=== PATIENT | male | born 1975 | race Caucasian/White ===

== ENCOUNTER 2019-05-01 09:34 | Outpatient (CLI) | payer OTHER, SELFPAY ==
--- NOTE | ~2019-05-01 | XR_ITS ---
XR chest 2V 05/01/2019 09:53 Indication: Dizziness and giddiness. Shortness of breath. Procedure: 2 view chest Comparison: No prior studies for comparison. Findings: Heart size normal. Nodular density right infrahilar region. Left lung clear. No acute osseo us abnormality. No focal pneumonia, edema, pleural effusion or pneumothorax. Impression: 1: Nodular density right infrahilar region. Recommend follow-up CT chest with contrast. Reviewed, dictated and finalized at location A. Impression: 1: Nodular density right infrahilar region. Recommend follow-up CT chest with c ontrast.
[2019-05-01 10:16] LABS: Hematocrit 43.8 % (42.0-52.0); Hemoglobin 14.6 g/dL (14.0-18.0); Mean Corpuscular HGB Conc 33.3 g/dl (32-36); Mean Corpuscular Hemoglobin 29.4 pg (26-34); Mean Corpuscular Volume 88.1 fl (80-100); Mean Platelet Volume 10.4 fl (7.4-10.4); Platelet Count Result 178 k/mm3 (150-375); Red Blood Count 4.97 M/mm3 (4.6-6.20); Red Cell Distribution Width 11.6 % (11.5-14.5); White Blood Count 3.9 K/mm3 (4.5-10.0)
[2019-05-01 10:36] LABS: Alanine Aminotransferase 48 U/L (4-50); Albumin Level 4.7 g/dL (3.5-5.1); Alkaline Phosphatase 69 U/L (38-126); Aspartate Amino Transferase 50 U/L (17-59); Bilirubin,Total 0.7 mg/dL (0.2-1.3); Blood Urea Nitrogen 17 mg/dL (9-20); Calcium 9.5 mg/dL (8.4-10.2); Carbon Dioxide 30 mmol/L (22-30); Chloride 102 mmol/L (98-107); Cholesterol 186 mg/dL (0-200); Estimated Glomerular Filt Rate > 60; Glucose 92 mg/dL (75-110); HDL Direct 42 mg/dL; Potassium 4.5 mmol/L (3.4-5.0); Sodium 140 mmol/L (137-145); Triglycerides 78 mg/dL (<150)
[2019-05-01 10:47] LABS: LDL Cholesterol Direct 107 mg/dL
--- NOTE | 2019-05-03 11:58 | WPDHOLTEREM ---
Holter/Event Monitor Holter/Event Monitor Date of procedure: 05/03/19 Procedure Type: 24 hour holter monitor Indications: Dizziness Conclusion: 1. 24 hour holter monitor on 05/03/19. 2. Underlying rhythm is sinus rhythm. HR range 47-121 bpm; average HR 74 bpm. 3. There are 51 premature supraventricular complexes and 5 supraventricular couplets. No supraventricular tachycardia. 4. There are 669 premature ventricular complexes and 54 ventricular couplets. No ventricular tachycardia. 5. No sinoatrial or atrioventricular blocks. No significant pauses greater than 2 seconds. 6. Patient reports symptoms of lightheadedness and side pain which demonstrate sinus rhythm, HR range 69-75 bpm.
== END 2019-05-01 09:35 | disposition home or self-care (01) ==
PROVIDERS: PCP Family Medicine; Visit Provider Family Medicine
DX: R06.02 Shortness of breath (principal); R42 Dizziness and giddiness; R94.31 Abnormal electrocardiogram [ECG] [EKG]; F41.9 Anxiety disorder, unspecified; I10 Essential (primary) hypertension; Z79.899 Other long term (current) drug therapy; R20.0 Anesthesia of skin; R20.2 Paresthesia of skin; R41.840 Attention and concentration deficit; R91.8 Other nonspecific abnormal finding of lung field
CPT/HCPCS: 36415; 71046; 80053; 80061; 82607; 83735; 84443; 85027; 93225; 93226

== ENCOUNTER 2019-05-08 14:24 | Outpatient (CLI) | payer OTHER, SELFPAY ==
--- NOTE | ~2019-05-08 | CT_ITS ---
EXAMINATION: CT chest w con EXAM DATE: 05/08/2019 15:15 INDICATION: Lung nodule. Shortness of breath. TECHNIQUE: Spiral CT of the chest following intravenous injection of 75 mL Omnipaque 350. Axial, cor onal and sagittal images were reviewed. Coronal maximum intensity pixel images of chest reviewed. Mumtaz robledo dose-length product (DLP) for this examination was 330.94 mGy-cm. The exposure was tailored accor ding to patient size (auto mA exposure control), and iterative reconstruction (ASIR) was used as rosalind tional dose reduction technique. There is no prior study for comparison. Correlation was made with chest x-ray 05/01/2019. FINDINGS: Prior chest x-ray reported a right infrahilar nodular density. The lungs are clear, uncert ain whether or not the nodular density was summation shadows or airspace disease which has subsequent ly resolved. There are no central pulmonary emboli. There are no pleural or pericardial effusions. Tracheobronchial tree is patent. There is no mediastinal, hilar or axillary lymphadenopathy. The re is no pneumothorax. Heart normal in size. No evidence of coronary arterial calcification. Upp er abdomen is unremarkable. Right glenoid bone island. IMPRESSION: 1. Unremarkable chest CT examination. Reviewed, dictated and finalized at location A.
== END 2019-05-08 14:25 | disposition home or self-care (01) ==
PROVIDERS: Visit Provider Family Medicine
DX: R91.1 Solitary pulmonary nodule (principal); R06.02 Shortness of breath
CPT/HCPCS: 71260; Q9967

== ENCOUNTER 2020-06-20 07:59 | Outpatient (CLI) | payer OTHER, SELFPAY ==
--- NOTE | 2020-07-08 16:11 | WPDHOMESLEEP ---
Sleep Study - Home Unattended Date of Study: 06/20/20 Ordering Provider: Cristina Hill PA-C Interpreting Provider: Fiorella Cobos MD Home Sleep Study Type: Watch PAT Height: 1.88 m Weight: 104.326 kg Body Mass Index: 29.5 Neck Circumference (inches): 16 [place]: 13 Reason for Sleep Study Loud snoring 11/16/2016 Basic sleep study; BMI 28.2; AHI 2.6, mild snoring, O2 desaturation to 81%. Sleep History Heraclio Valenzuela is a 45 year old male who wakes up throughout the night. He rarely sleeps more than 2 hours at a time. He often feels tired during the day. There is a family history of sleep issues with his brother and uncle both having sleep disorders. He frequently awakens from sleep feeling short of breath. He occasionally awakens at night with heartburn, belching or coughing. He frequently snores and it is loud enough that others complain about it. He frequently has trouble sleep with a cold. He rarely wakes up gasping for breath during the night. He frequently has breathing problems at night observed by others. He rarely sweats excessively night. He rarely notices his heart pounding or beating irregularly at night. He frequently falls asleep during the day, occasionally involuntarily, and occasionally while driving. He does not fall asleep during physical effort. He does not have loss of muscle tone with strong emotion. He occasionally has trouble during the day due to excessive sleepiness. He does not feel paralyzed on waking or falling asleep. Rarely he has vivid dreamlike scenes upon awakening or falling asleep. He is never afraid to go to sleep. He occasionally has nightmares. He occasionally remembers his dreams. He rarely has racing thoughts. He does not feel sad or depressed. He occasionally has anxiety. He rarely has muscular tension. He rarely notices parts of his body jerking. He occasionally kicks at night. He does not have crawling or aching feelings in his legs. He rarely has any kind of leg pain at night. He does not have morning jaw pain. He apparently grinds his teeth during sleep. He is not bothered by pain during the day and is not awakened by pain at night. He occasionally wakes up feeling stiff in the morning with sore or achy muscles. He rarely wakes up with pain in the neck and spine. He has nightmares and fatigue. Normal bedtime is 11:00 p.m. falling asleep within 5-20 minutes waking multiple times at night. Sometimes he wakes up to urinate. Otherwise, he rolls over and tries to go back to sleep. He is in bed for around 7 hours a night. He is waking by 6:00 a.m. on weekdays. On weekends he also goes to bed at 11:00 p.m. and wakes at 7:00 a.m.. He occasionally takes naps in the afternoon or evening. A short nap is not refreshing. He is drowsy in the morning. He feels better in the morning compared other times of the day. Habits: Never smoked tobacco. No caffeine, alcohol or recreational drugs. [facility] Past Medical History Medical History (Updated 07/08/20 @ 16:37 by Fiorella Cobos MD) Hypertension Surgical History Surgical History History of tonsillectomy (~1984) Social History Social History Second hand tobacco smoke exposure: No Alcohol intake: never Substance use: never Substance use type: does not use Gender identity (if verbalized by the patient): Male Medications Home Medications Medication Instructions Recorded Confirmed Type metoprolol succinate 25 mg 25 mg PO DAILY 10/12/19 05/21/20 History tablet,extended release 24 hr lisinopril 20 mg tablet See Rx Instructions .ROUTE 05/16/20 05/21/20 Rx .COMPLEX #90 tablet Sleep Procedure The sleep study was completed using [employer] a technically adequate device with seven channels: peripheral arterial tone, actigraphy, body position, snore, respiratory movement, pulse oximet
[2020-07-08 16:13] VITALS: BMI 29.5
== END 2020-06-20 08:00 | disposition home or self-care (01) ==
LOC: ANHCSM 07:59
PROVIDERS: PCP Family Medicine; Visit Provider Physician Assistant
DX: G47.33 Obstructive sleep apnea (adult) (pediatric) (principal)
CPT/HCPCS: 95800

== ENCOUNTER → 2020-09-02 19:30 | Outpatient (CLI) | payer OTHER, SELFPAY ==
--- NOTE | 2020-09-24 20:52 | P.SLEEP_ITS ---
Sleep Study Date of Study: 08/18/20 Ordering Provider: Cristina Hill PA-C Interpreting Physician: Fiorella Cobos MD Sleep Study Type: CPAP Titration Height: 1.88 m Weight: 99.79 kg Body Mass Index: 28.2 Neck Circumference (inches): 16 [place]: 13 [facility] Past Medical History Medical History (Updated 07/08/20 @ 16:37 by Fiorella Cobos MD) Hypertension Surgical History Surgical History History of tonsillectomy (~1984) Social History Social History Second hand tobacco smoke exposure: No Alcohol intake: never Alcohol use details: Patient is not drinking alcohol at this time. Substance use: never Substance use type: does not use Gender identity (if verbalized by the patient): Male Medications Home Medications Medication Instructions Recorded Confirmed Type metoprolol succinate 25 mg 25 mg PO DAILY 10/12/19 05/21/20 History tablet,extended release 24 hr lisinopril 20 mg tablet See Rx Instructions .ROUTE 05/16/20 05/21/20 Rx .COMPLEX #90 tablet Sleep Procedure This test was performed using the [employer] multiple channel system including EOG, EEG, submental EMG, EKG, nasal and oral airflow using thermistors and nasal pressure sensors, chest and abdominal belts for body position data, and pulse oximetry. Video monitoring was also performed. The study was scored using CMS guidelines. The patient was started on CPAP .... EEG Profile EEG was unremarkable, no evidence of seizures.
--- NOTE | 2020-09-24 20:53 | WPDSLEEPSTUD ---
Sleep Study Date of Study: 09/02/20 Ordering Provider: Cristina Hill PA-C Interpreting Physician: Fiorella Cobos MD Sleep Study Type: CPAP Titration Height: 1.88 m Weight: 99.79 kg Body Mass Index: 28.2 Neck Circumference (inches): 16 [place]: 13 Reason for Sleep Study * Home sleep test using WatchPat on June 20, 2020 shows moderate obstructive sleep apnea with an AHI 24.5, moderate snoring and desaturation to 80%. He presents for CPAP titration. * 11/16/2016 Basic sleep study; BMI 28.2; AHI 2.6, mild snoring, O2 desaturation to 81%. Sleep History Heraclio Valenzuela is a 45 year old male who wakes up throughout the night. He rarely sleeps more than 2 hours at a time. He often feels tired during the day. There is a family history of sleep issues with his brother and uncle both having sleep disorders. He frequently awakens from sleep feeling short of breath. He occasionally awakens at night with heartburn, belching or coughing. He frequently snores and it is loud enough that others complain about it. He frequently has trouble sleep with a cold. He rarely wakes up gasping for breath during the night. He frequently has breathing problems at night observed by others. He rarely sweats excessively night. He rarely notices his heart pounding or beating irregularly at night. He frequently falls asleep during the day, occasionally involuntarily, and occasionally while driving. He does not fall asleep during physical effort. He does not have loss of muscle tone with strong emotion. He occasionally has trouble during the day due to excessive sleepiness. He does not feel paralyzed on waking or falling asleep. Rarely he has vivid dreamlike scenes upon awakening or falling asleep. He is never afraid to go to sleep. He occasionally has nightmares. He occasionally remembers his dreams. He rarely has racing thoughts. He does not feel sad or depressed. He occasionally has anxiety. He rarely has muscular tension. He rarely notices parts of his body jerking. He occasionally kicks at night. He does not have crawling or aching feelings in his legs. He rarely has any kind of leg pain at night. He does not have morning jaw pain. He apparently grinds his teeth during sleep. He is not bothered by pain during the day and is not awakened by pain at night. He occasionally wakes up feeling stiff in the morning with sore or achy muscles. He rarely wakes up with pain in the neck and spine. He has nightmares and fatigue. Normal bedtime is 11:00 p.m. falling asleep within 5-20 minutes waking multiple times at night. Sometimes he wakes up to urinate. Otherwise, he rolls over and tries to go back to sleep. He is in bed for around 7 hours a night. He is waking by 6:00 a.m. on weekdays. On weekends he also goes to bed at 11:00 p.m. and wakes at 7:00 a.m.. He occasionally takes naps in the afternoon or evening. A short nap is not refreshing. He is drowsy in the morning. He feels better in the morning compared other times of the day. Habits: Never smoked tobacco. No caffeine, alcohol or recreational drugs. [facility] Past Medical History Medical History (Updated 09/24/20 @ 21:31 by Fiorella Cobos MD) Hypertension Obstructive sleep apnea Surgical History Surgical History History of tonsillectomy (~1984) Social History Social History Second hand tobacco smoke exposure: No Alcohol intake: never Alcohol use details: Patient is not drinking alcohol at this time. Substance use: never Substance use type: does not use Gender identity (if verbalized by the patient): Male Medications Home Medications Medication Instructions Recorded Confirmed Type metoprolol succinate 25 mg 25 mg PO DAILY 10/12/19 05/21/20 History tablet,extended release 24 hr lisinopril 20 mg tablet See Rx Instructions .ROUTE 05/16/20
[2020-09-24 21:24] VITALS: BMI 28.2
== END ==
PROVIDERS: PCP Family Medicine; Visit Provider Physician Assistant
DX: G47.33 Obstructive sleep apnea (adult) (pediatric) (principal)
CPT/HCPCS: 95811

== ENCOUNTER 2021-12-01 10:26 | Outpatient (CLI) | payer OTHER, SELFPAY ==
[2021-12-01 19:37] LABS: Hematocrit 41.8 % (42.0-52.0); Hemoglobin 14.1 g/dL (14.0-18.0); Mean Corpuscular HGB Conc 33.7 g/dl (32-36); Mean Corpuscular Hemoglobin 30.1 pg (26-34); Mean Corpuscular Volume 89.1 fl (80-100); Mean Platelet Volume 11.5 fl (7.4-10.4); Platelet Count Result 191 k/mm3 (150-375); Red Blood Count 4.69 M/mm3 (4.6-6.20); Red Cell Distribution Width 11.6 % (11.5-14.5); White Blood Count 4.3 K/mm3 (4.5-10.0)
[2021-12-01 20:28] LABS: Alanine Aminotransferase 42 U/L (6-50); Albumin Level 4.8 g/dL (3.5-5.1); Alkaline Phosphatase 66 U/L (38-126); Anion Gap 11 mmol/L (8-16); Aspartate Amino Transferase 49 U/L (17-59); Bilirubin,Total 1.2 mg/dL (0.2-1.3); Blood Urea Nitrogen 21 mg/dL (9-20); Calcium 9.2 mg/dL (8.4-10.2); Carbon Dioxide 25 mmol/L (22-30); Chloride 104 mmol/L (98-107); Estimated Glomerular Filt Rate > 60; Glucose 87 mg/dL (65-110); Potassium 4.3 mmol/L (3.4-5.0); Sodium 140 mmol/L (137-145)
[2021-12-01 20:59] LABS: Prostate Specific Antigen 1.3 ng/mL (< OR = 4.0)
== END 2021-12-01 10:27 | disposition home or self-care (01) ==
LOC: ANHGOSHLAB 10:29
PROVIDERS: PCP Family Medicine; Visit Provider Family Medicine
DX: E66.3 Overweight (principal); G47.33 Obstructive sleep apnea (adult) (pediatric); E78.5 Hyperlipidemia, unspecified; I10 Essential (primary) hypertension; Z12.5 Encounter for screening for malignant neoplasm of prostate
CPT/HCPCS: 36415; 80053; 84153; 84443; 85027; G0103